=== PATIENT | male | born 1985 | race Caucasian/White ===

== ENCOUNTER 2018-06-16 21:03 | Emergency (ER) | payer BC ==
[2018-06-17] MEDS ORDERED: DIAZEPAM 5 MG TABLET ONE (00:05)
[2018-06-17] MEDS ORDERED: KETOROLAC 30 MG/ML INJ ONE (00:05)
--- NOTE | 2018-06-17 01:17 | EDPHYS ---
Physician Documentation [facility] Name: Rajesh Arango Age: 33 yrs Sex: Male : 1985 Arrival Date: 06/16/2018 Time: 21:10 Bed 8 Private MD: None, None ED Physician Dane Miranda HPI: 06/16 23:53 This 33 yrs old Male presents to ER via Ambulatory with complaints of Back snw Pain. 23:53 This 33 yrs old Male presents to ER via Ambulatory with complaints of Back snw Pain. 23:53 The patient presents with pain that is acute, and spasm, tightness, and tenderness. The snw symptoms are located in the low back. Onset: The symptoms/episode began/occurred suddenly, 1 month(s) ago, and became persistent. The pain radiates to the left calf and left quadriceps. Associated signs and symptoms: Pertinent positives: numbness. The problem was sustained from twisting. Modifying factors: The patient symptoms are alleviated by nothing, the patient symptoms are aggravated by movement. Severity of symptoms: At their worst the symptoms were moderate, severe. The patient has not experienced similar symptoms in the past. The patient has not recently seen a physician. Historical: - Allergies: 21:23 Sulfa (Sulfonamide Antibiotics); aj - Home Meds: 21:23 None [Active]; aj - PMHx: 21:23 None; aj - PSHx: 21:23 None; aj - Immunization history:: Adult Immunizations up to date. - Social history:: Smoking status: Patient uses tobacco products, smokes one pack cigarettes per day. - Ebola Screening: : Patient negative for fever greater than or equal to 101.5 degrees Fahrenheit, and additional compatible Ebola Virus Disease symptoms Patient denies exposure to infectious person Patient denies travel to an Ebola-affected area in the 21 days before illness onset No symptoms or risks identified at this time. ROS: 23:52 Constitutional: Negative for fever, chills, and weight loss, Eyes: Negative for injury, snw pain, redness, and discharge, ENT: Negative for injury, pain, and discharge, Neck: Negative for injury, pain, and swelling, Cardiovascular: Negative for chest pain, palpitations, and edema, Respiratory: Negative for shortness of breath, cough, wheezing, and pleuritic chest pain, Abdomen/GI: Negative for abdominal pain, nausea, vomiting, diarrhea, and constipation, : Negative for injury, bleeding, discharge, and swelling, MS/Extremity: Negative for injury and deformity, Skin: Negative for injury, rash, and discoloration, Neuro: Negative for headache, weakness, numbness, tingling, and seizure. 23:52 Back: Positive for decreased range of motion, pain at rest, pain with movement, radiated pain, of the low back area and down left thigh, posterior calf. Exam: 23:51 Constitutional: This is a well developed, well nourished patient who is awake, alert, snw and in no acute distress. Head/Face: Normocephalic, atraumatic. Eyes: Pupils equal round and reactive to light, extra-ocular motions intact. Lids and lashes normal. Conjunctiva and sclera are non-icteric and not injected. Cornea within normal limits. Periorbital areas with no swelling, redness, or edema. ENT: Nares patent. No nasal discharge, no septal abnormalities noted. Tympanic membranes are normal and external auditory canals are clear. Oropharynx with no redness, swelling, or masses, exudates, or evidence of obstruction, uvula midline. Mucous membranes moist. Neck: Trachea midline, no thyromegaly or masses palpated, and no cervical lymphadenopathy. Supple, full range of motion without nuchal rigidity, or vertebral point tenderness. No Meningismus. Chest/axilla: Normal chest wall appearance and motion. Nontender with no deformity. No lesions are appreciated. Cardiovascular: Regular rate and rhythm with a normal S1 and S2. No gallops, murmurs, or rubs. Normal PMI, no JVD. No pulse deficits. Respiratory: Lungs have equal breath sounds bilaterally, clear to auscultation and percussion. No rales, rhonchi or wheezes noted. No increased work of breathing, no retractions or nasal flaring. Abdomen/GI: Soft, non-tender, with normal bowel sounds. No distension or tympany. No guarding or rebound. No evidence of tenderness throughout. Skin: Warm, dry with normal turgor. Normal color with no rashes, no lesions, and no evidence of cellulitis. MS/ Extremity: Pulses equal, no cyanosis. Neurovascular intact. Full, normal range of motion. Neuro: Awake and alert, GCS 15, oriented to person, place, time, and situation. Cranial nerves II-XII grossly intact. Motor strength 5/5 in all extremities. Sensory grossly intact. Cerebellar exam normal. Normal gait. Psych: Awake, alert, with orientation to person, place and time. Behavior, mood, and affect are within normal limits. 23:51 Back: pain, that is moderate, that is severe, of the lumbar area and sacrum, ROM is painful, normal spinal alignment noted, CVA tenderness, is absent, muscle spasm, is appreciated in the low back area. Vital Signs: 21:23 BP 144 / 89; Pulse 99; Resp 20; Temp 98.1; Pulse Ox 97% on R/A; Weight 115.21 kg; aj Height 6 ft. 0 in. (182.88 cm); 23:47 BP 128 / 81; Pulse 91; Resp 18; Pulse Ox 98% on R/A; tl2 06/17 00:49 BP 114 / 86; Pulse 73; Resp 18; Pulse Ox 95% on R/A; Pain 4/10; tl2 01:21 BP 117 / 80; Pulse 76; Resp 18; Pulse Ox 95% on R/A; tl2 06/16 21:23 Body Mass Index 34.45 (115.21 kg, 182.88 cm) aj MDM: 06/16 23:14 Patient medically screened. snw 06/17 01:17 Data reviewed: vital signs, nurses notes. Data interpreted: Pulse oximetry: on room air snw is 95 %. Interpretation: acceptable. Counseling: I had a detailed discussion with the patient and/or guardian regarding: the historical points, exam findings, and any diagnostic results supporting the discharge/admit diagnosis, the presence of at least one elevated blood pressure reading (>120/80) during this emergency department visit, radiology results, the need for outpatient follow up, to return to the emergency department if symptoms worsen or persist or if there are any questions or concerns that arise at home. Response to treatment: the patient's symptoms have markedly improved after treatment, and as a result, I will discharge patient. Special discussion: I have referred the patient to see his PCP for further evaluation of high blood pressure. Based on the history and exam findings, there is no indication for further emergent testing or inpatient evaluation. I discussed with the patient/guardian the need to see the back specialist for further evaluation of the symptoms. I discussed with the patient/guardian the need to see the primary care provider for further evaluation of the symptoms. 06/16 23:50 Order name: Lumbar Spine (3 Views) XRAY snw Administered Medications: 00:06 Drug: Valium 10 mg Route: PO; tl2 00:50 Follow up: Response: No adverse reaction; Pain is decreased tl2 00:07 Drug: TORadol 60 mg Route: IM; Site: right gluteus; tl2 00:50 Follow up: Response: No adverse reaction; Pain is decreased tl2 Disposition: 06/17/18 01:16 Discharged to Home. Impression: Low back pain, Radiculopathy, lumbar region. - Condition is Stable. - Discharge Instructions: Back Pain, Adult, Musculoskeletal Pain, Neuropathic Pain, Back Injury Prevention, [id number], Cryotherapy, Rehydration, Adult, Heat Therapy. - Prescriptions for Pepcid 20 mg Oral Tablet - take 1 tablet by ORAL route every 12 hours for 10 days; 20 tablet. Prednisone 20 mg Oral Tablet - take 2 tablet by ORAL route once daily for 5 days; 10 tablet. orphenadrine citrate 100 mg Oral Tablet Sustained Release - take 1 tablet by ORAL route 2 times per day As needed; 20 tablet. - Work release form, Medication Reconciliation Form, Thank You Letter, Antibiotic Education, Prescription Opioid Use form. - Follow up: Private Physician; When: 2 - 3 days; Reason: Recheck today's complaints, Continuance of care, Re-evaluation by your physician. Follow up: Emergency Department; When: As needed; Reason: Worsening of condition. Addendum: 06/19/2018 06:47 Co-signature as Attending Physician, Dane Miranda MD. g s Signatures: Dispatcher [employer] EDLainey Dee RN RN aj Therrien, Shelly, DISPATCH COORDINATOR-C DISPATCH COORDINATOR-Csnw Leonor Baca RN RN tl2 Dane Miranda MD MD Corrections: (The following items were deleted from the chart) 06/17 01:39 01:16 06/17/2018 01:16 Discharged to Home. Impression: Low back pain; Radiculopathy, tl2 lumbar region. Condition is Stable. Forms are Medication Reconciliation Form, Thank You Letter, Antibiotic Education, Prescription Opioid Use. Follow up: Private Physician; When: 2 - 3 days; Reason: Recheck today's complaints, Continuance of care, Re-evaluation by your physician. Follow up: Emergency Department; When: As needed; Reason: Worsening of condition. [place]
--- NOTE | 2018-06-17 01:17 | ER ---
Nurse's Notes [facility] Name: Rajesh Arango Age: 33 yrs Sex: Male : 1985 Arrival Date: 06/16/2018 Time: 21:10 Bed 8 Private MD: None, None Diagnosis: Low back pain;Radiculopathy, lumbar region Presentation: 06/16 21:21 Presenting complaint: Patient states: Reports lower back pain that shoots down left aj leg. First started 3 weeks ago and was improving until today when patient twisted to lift something and caused pain to increase significantly. Reports numbness to left upper leg for 45 min. Ambulated to triage with steady gait. Transition of care: patient was not received from another setting of care. Onset of symptoms was June 16, 2018. Risk Assessment: Do you want to hurt yourself or someone else? Patient reports no desire to harm self or others. Initial Sepsis Screen: Does the patient meet any 2 criteria? No. Patient's initial sepsis screen is negative. Does the patient have a suspected source of infection? No. Patient's initial sepsis screen is negative. Care prior to arrival: None. 21:21 Method Of Arrival: Ambulatory 21:21 Acuity: ANIYA 4 aj Triage Assessment: 21:23 General: Appears in no apparent distress. comfortable, Behavior is calm, cooperative, aj appropriate for age. Pain: Complains of pain in low back area, buttocks, left hip, lateral aspect of left thigh, left gluteal fold and left hamstring. Neuro: Level of Consciousness is awake, alert, obeys commands, Oriented to person, place, time, situation, Appropriate for age. Respiratory: Airway is patent Respiratory effort is even, unlabored, Respiratory pattern is regular, symmetrical. Derm: Skin is intact, is healthy with good turgor, Skin is pink, warm \T\ dry. normal. Musculoskeletal: Circulation, motion, and sensation intact. Range of motion: intact in all extremities, Reports numbness in lateral aspect of left thigh and left hamstring pain in low back area, buttocks, left hip, lateral aspect of left thigh, left gluteal fold and left hamstring. Historical: - Allergies: 21:23 Sulfa (Sulfonamide Antibiotics); aj - Home Meds: 21:23 None [Active]; aj - PMHx: 21:23 None; aj - PSHx: 21:23 None; aj - Immunization history:: Adult Immunizations up to date. - Social history:: Smoking status: Patient uses tobacco products, smokes one pack cigarettes per day. - Ebola Screening: : Patient negative for fever greater than or equal to 101.5 degrees Fahrenheit, and additional compatible Ebola Virus Disease symptoms Patient denies exposure to infectious person Patient denies travel to an Ebola-affected area in the 21 days before illness onset No symptoms or risks identified at this time. Screenin:48 Abuse screen: Denies threats or abuse. Nutritional screening: No deficits noted. tl2 Tuberculosis screening: No symptoms or risk factors identified. Fall Risk None identified. Assessment: 23:48 General: Appears in no apparent distress. uncomfortable, Behavior is calm, cooperative, tl2 appropriate for age. Pain: Complains of pain in low back area Pain radiates to left leg Pain currently is 8 out of 10 on a pain scale. Quality of pain is described as sharp. Neuro: Level of Consciousness is awake, alert, obeys commands, Oriented to person, place, time, situation. Cardiovascular: Denies chest pain. Respiratory: Airway is patent Respiratory effort is even, unlabored, Respiratory pattern is regular, symmetrical. GI: No signs and/or symptoms were reported involving the gastrointestinal system. : No signs and/or symptoms were reported regarding the genitourinary system. Derm: Skin is pink, warm \T\ dry. 06/17 00:49 Reassessment: Patient appears in no apparent distress at this time. Patient and/or tl2 family updated on plan of care and expected duration. Pain level reassessed. Patient is alert, oriented x 3, equal unlabored respirations, skin warm/dry/pink. Patient states feeling better. 01:36 Reassessment: Patient appears in no apparent distress at this time. Patient and/or tl2 family updated on plan of care and expected duration. Pain level reassessed. Patient is alert, oriented x 3, equal unlabored respirations, skin warm/dry/pink. Pt and family verbalized understanding of discharge instructions, and prescription usage. Vital Signs: 06/16 21:23 BP 144 / 89; Pulse 99; Resp 20; Temp 98.1; Pulse Ox 97% on R/A; Weight 115.21 kg; aj Height 6 ft. 0 in. (182.88 cm); 23:47 BP 128 / 81; Pulse 91; Resp 18; Pulse Ox 98% on R/A; tl2 06/17 00:49 BP 114 / 86; Pulse 73; Resp 18; Pulse Ox 95% on R/A; Pain 4/10; tl2 01:21 BP 117 / 80; Pulse 76; Resp 18; Pulse Ox 95% on R/A; tl2 06/16 21:23 Body Mass Index 34.45 (115.21 kg, 182.88 cm) aj ED Course: 06/16 21:10 Patient arrived in ED. mr 21:10 None, None is Private Physician. mr 21:22 Triage completed. aj 21:23 Arm band placed on left wrist. Patient placed in waiting room, Patient notified of wait aj time. 22:30 [facility] snw 22:30 Dane Miranda MD is Attending Physician. snw 23:48 Patient has correct armband on for positive identification. Bed in low position. Call tl2 light in reach. Side rails up X 1. 23:51 Leonor Baca, ASHLEY is Primary Nurse. tl2 06/17 00:27 Patient moved to radiology via wheelchair. kw 00:31 X-ray completed. Patient tolerated procedure well. kw 00:31 Patient moved back from radiology. kw 00:34 Lumbar Spine (3 Views) XRAY In Process Unspecified. EDMS 01:36 No provider procedures requiring assistance completed. Patient did not have IV access tl2 during this emergency room visit. Administered Medications: 00:06 Drug: Valium 10 mg Route: PO; tl2 00:50 Follow up: Response: No adverse reaction; Pain is decreased tl2 00:07 Drug: TORadol 60 mg Route: IM; Site: right gluteus; tl2 00:50 Follow up: Response: No adverse reaction; Pain is decreased tl2 Outcome: 01:16 Discharge ordered by . snw 01:36 Discharged to home ambulatory, with family. tl2 01:36 Condition: stable 01:36 Discharge instructions given to patient, family, Instructed on discharge instructions, follow up and referral plans. medication usage, Demonstrated understanding of instructions, follow-up care, medications, Prescriptions given X 3. 01:39 Patient left the ED. tl2 Signatures: Dispatcher [employer] EDLainey Dee RN RN Basilia Pedraza, DIRECTOR ONCOLOGY-C DIRECTOR ONCOLOGY-Csnw Jazmyn Rojas Kimberlee kw Knox, Taylor, RN RN tl2
--- NOTE | 2018-06-17 07:59 | RAD REPORT ---
EXAM DESCRIPTION: RAD - Lumbar Spine 3 Views - 06/17/2018 12:35 am CLINICAL HISTORY: Back pain FINDINGS: The alignment of the lumbar spine is satisfactory. No fracture or dislocation is seen. Moderate disc space narrowing involves L5-S1 with small osteophytes
== END 2018-06-17 01:39 | disposition home or self-care (01) ==
LOC: ER 21:03
DX: M54.16 Radiculopathy, lumbar region (principal); F17.210 Nicotine dependence, cigarettes, uncomplicated; Z88.2 Allergy status to sulfonamides
CPT/HCPCS: 72100; 96372; 99283